=== PATIENT | male | born 1945 | race Native Hawaiian/Other Pacific Islander ===

== ENCOUNTER 2017-04-30 07:31 | Outpatient (CLI) | payer OTHER, MEDICARE ==
[2017-04-30] MEDS ORDERED: FLUOXETINE40 MG PO (07:53)
[2017-04-30] MEDS ORDERED: ZANTAC300 MG PO (07:53)
[2017-04-30] MEDS ORDERED: GLIM2TAB PO (07:54)
[2017-04-30] MEDS ORDERED: PROTONIX20 MG PO (07:54)
[2017-04-30] MEDS ORDERED: METOCLOPRAM10 MG OR (07:55)
[2017-04-30] MEDS ORDERED: AMLO2.5T PO (07:55)
[2017-04-30] MEDS ORDERED: ACID CONTROL MA20 MG OR (07:56)
[2017-04-30] MEDS ORDERED: PRAVACHOL20 MG PO (07:56)
== END 2017-04-30 07:37 | disposition short-term general hospital (02) ==
LOC: AMB 07:31
DX: R10.84 Generalized abdominal pain (principal); R11.0 Nausea; R53.1 Weakness
CPT/HCPCS: A0425; A0427

== ENCOUNTER 2017-04-30 07:43 | Emergency (ER) | payer OTHER, MEDICARE ==
[~2017-04-30] VITALS: Ht 152.4 cm; Wt 10.4 kg
[2017-04-30 07:39] VITALS: TEMP 98.7
[2017-04-30] MEDS ORDERED: FLUOXETINE40 MG PO (07:53)
[2017-04-30] MEDS ORDERED: ZANTAC300 MG PO (07:53)
[2017-04-30] MEDS ORDERED: GLIM2TAB PO (07:54)
[2017-04-30] MEDS ORDERED: PROTONIX20 MG PO (07:54)
[2017-04-30] MEDS ORDERED: AMLO2.5T PO (07:55)
[2017-04-30] MEDS ORDERED: METOCLOPRAM10 MG OR (07:55)
[2017-04-30] MEDS ORDERED: ACID CONTROL MA20 MG OR (07:56)
[2017-04-30] MEDS ORDERED: PRAVACHOL20 MG PO (07:56)
[2017-04-30 08:47] LABS: POTASSIUM 4.4 mmol/L (3.6-5.2)
[2017-04-30 08:53] LABS: PLATELET COUNT 325 K/uL (142-355)
[2017-04-30 12:45] VITALS: BP 148/90
== END 2017-04-30 14:00 | disposition home or self-care (01) ==
LOC: ED 07:43
PROVIDERS: Emergency Medicine
DX: N39.0 Urinary tract infection, site not specified (principal); E11.9 Type 2 diabetes mellitus without complications; R10.84 Generalized abdominal pain
CPT/HCPCS: 36415; 80053; 81000; 82150; 82550; 83690; 84484; 85027; 86318; 93005; 96372; 96374; 96376; 99284; J0500; J2405